=== PATIENT | female | born 1970 | race Caucasian/White ===

== ENCOUNTER → 2022-03-30 16:21 | Outpatient (CLI) | payer OTHER, SELFPAY ==
--- NOTE | ~2022-03-30 | MM_ITS ---
EXAMINATION: MM scrn ryan implant BI w maty HISTORY: Screening mammogram TECHNIQUE: Craniocaudal and mediolateral oblique 3-D tomosynthesis images with implant displacement a nd synthetic 2-D images were generated. Craniocaudal and mediolateral oblique views of the breasts wi thout implant displacement were obtained using full field digital mammography. CAD analysis was submi tted and interpreted. COMPARISON: 11/27/2006 BREAST PARENCHYMAL COMPOSITION: The breasts are extremely dense, which lowers the sensitivity of mamm ography. 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 There has been interval augmentati on mammoplasty. There is no evidence of suspicious mass, calcification, or architectural distortion t o suggest malignancy in either breast. There has been no suspicious interval change. IMPRESSION: 1. No mammographic evidence of malignancy. 2. Recommend routine screening mammography in one year. BI-RADS Category 2: Benign finding(s). Reviewed, dictated and finalized at location A.
== END ==
PROVIDERS: PCP Nurse Practitioner; Visit Provider Nurse Practitioner
DX: Z12.31 Encounter for screening mammogram for malignant neoplasm of breast (principal)
CPT/HCPCS: 77063; 77067

== ENCOUNTER 2023-01-20 11:09 | Observation (INO) | payer OTHER, SELFPAY ==
[2023-01-20] VITALS (21 sets, daily range): BP systolic 94–120; BP diastolic 46–83; PULSE 65–137; RESP 16–28; TEMP 36.7–36.9; O2SAT 98–100; BMI 16.5
--- NOTE | ~2023-01-20 | XR_ITS ---
EXAMINATION: XR chest 2V DATE: 01/20/2023 11:59 INDICATION: Central chest pain radiating to the left arm. TECHNIQUE: Frontal and lateral views of the chest were obtained on 2 radius. COMPARISON: Chest 2 views 02/01/2014 FINDINGS: There is chronic scarring in peripheral left upper lobe. No pleural effusion or pneumothora x. The heart size is normal. Median sternotomy wires are noted. There is dextroscoliosis of thoracic spine with posterior fixation of thoracolumbar spine. IMPRESSION: 1. Stable scarring in peripheral left upper lobe. Reviewed, dictated and finalized at location A.
--- NOTE | ~2023-01-20 | CT_ITS ---
EXAMINATION: CTA chest PE protocol DATE: 01/20/2023 15:06 INDICATION: chest pain and dyspnea TECHNIQUE: Computed tomography angiography (CTA) of the chest was performed Q scan intravenous contra st timed to evaluate the pulmonary arteries. Coronal maximum intensity projection 3D-reconstructions were created by the technologist. The dose-length product (DLP) was 164.26 mGy-cm. Automated exposure control and iterative reconstruction technique were employed. COMPARISON: None. FINDINGS: Lung parenchyma and airways: Subsegmental and centrilobular opacities in the left upper lobe, with as sociated bronchiectasis and pleural scarring. Septal thickening in the left lower lobe. Pleura: Unremarkable. Thoracic inlet, axillae and chest wall: Bilateral breast augmentation. Old sternotomy wires, reported ly secondary to VSD repair. Thoracic aorta: Right-sided aortic arch. No significant dilation or calcification. Mediastinum: Enlarged left hilar nodes versus left hilar mass. Heart and pericardium: Normal. Coronary artery calcifications: Absent. Upper abdomen: No significant finding. Prominent upper abdominal arteries, may represent systemic art erial supply to the left lung. Bones: No acute osseous finding. Uncomplicated appearing thoracolumbar fusion hardware. Pulmonary arteries: Study quality: Adequate. No pulmonary emboli detected. Absent left main pulmonary artery, a known diagnosis according to the patient. IMPRESSION: No CT evidence of acute pulmonary embolus. Parenchymal opacities with fibrosis and bronchiectasis in the left upper lobe may represent atypical infectious or chronic inflammatory change. Left lower lobe septal thickening, may represent asymmetric edema, pneumonitis, or infectious airways disease. Left hilar lymphadenopathy, neoplasia not excluded. Reviewed, dictated and finalized at location K. IMPRESSION: No CT evidence of acute pulmonary embolus. Parenchymal opacities with fibrosis and bronchiectasis in the left upper lobe may represent atypical infectious or chronic inflammatory change. Left lower lobe septal thickening, may represent a symmetric edema, pneumonitis, or infectious airways disease. Left hilar lymphad enopathy, neoplasia not excluded.
--- NOTE | 2023-01-20 11:10 | ECG_ITS ---
Measurements Intervals [place] Rate: 138 P: VT: 0 QRS: 108 QRSD: 129 T: 55 QT: 337 QTc: 512 Interpretive Statements SVT VERSUS ATRIAL FLUTTER WITH RVR WITH ABERRANT CONDUCTION OR VENTRICULAR PREMATURE COMPLEXES RIGHT BUNDLE BRANCH BLOCK T-WAVE ABNORMALITY, CONSIDER ISCHEMIA Electronically Signed On 01-20-2023 15:48:33 CDT by Colten Campbell M.D.
[2023-01-20 11:35] LABS: Basophils Absolute Auto 0.1 K/mm3 (0.0-0.1); Basophils Percent Auto 0.9 % (0.2-1.2); Eosinophils Absolute Auto 0.2 K/mm3 (0-0.3); Hematocrit 39.3 % (37.0-47.0); Hemoglobin 12.6 g/dL (12.0-15.0); Immature Granulocyte Absolute 0.02 K/mm3 (0.00-0.031); Immature Granulocyte Percent A 0.3 % (0-0.5); Lymphocytes Absolute Auto 1.39 K/mm3 (0.9-3.2); Lymphocytes Percent Auto 18.3 % (18.3-44.2); Mean Corpuscular HGB Conc 32.1 g/dl (32-36); Mean Corpuscular Hemoglobin 28.4 pg (26-34); Mean Corpuscular Volume 88.5 fl (80-100); Mean Platelet Volume 10.1 fl (7.4-10.4); Monocytes Absolute Auto 0.7 K/mm3 (0.1-0.6); Monocytes Percent Auto 9.5 % (2.6-8.5); Neutrophils Absolute Auto 5.3 K/mm3 (1.3-6.7); Platelet Count Result 251 k/mm3 (150-375); Red Blood Count 4.44 M/mm3 (4.2-5.4); Red Cell Distribution Width 13.3 % (11.5-14.5); White Blood Count 7.6 K/mm3 (4.5-10.0)
[2023-01-20 11:45] LABS: INR 1.1; Prothrombin Time 13.8 Seconds (11.1-14.7)
[2023-01-20 11:46] LABS: Partial Thromboplastin Time 32.4 SECONDS (22.3-36.8)
[2023-01-20] MEDS: SODIUM CHLORIDE 0.9% IV 1,000 ML 999 ML IV CONT (11:49)
[2023-01-20 11:53] LABS: Alanine Aminotransferase 23 U/L (6-35); Albumin Level 4.4 g/dL (3.5-5.1); Alkaline Phosphatase 83 U/L (38-126); Anion Gap 7 mmol/L (8-16); Aspartate Amino Transferase 31 U/L (14-36); Bilirubin,Total 0.8 mg/dL (0.2-1.3); Blood Urea Nitrogen 16 mg/dL (7-17); Calcium 8.5 mg/dL (8.4-10.2); Carbon Dioxide 30 mmol/L (22-30); Chloride 102 mmol/L (98-107); Estimated CRCL calculation 54 ml/min; Estimated Glomerular Filt Rate > 60; Glucose 110 mg/dL (65-110); Lipase 93 U/L (23-300); Potassium 3.3 mmol/L (3.4-5.0); Sodium 139 mmol/L (137-145)
[2023-01-20 12:02] LABS: Troponin I < 0.012 ng/mL (0.000-0.034)
--- NOTE | 2023-01-20 12:05 | ECG_ITS ---
Measurements Intervals [place] Rate: 114 P: [place]: 0 QRS: 115 QRSD: 123 T: 49 QT: 344 QTc: 474 Interpretive Statements ATRIAL FLUTTER/TACHYCARDIA WITH RAPID VENTRICULAR RESPONSE RIGHT BUNDLE BRANCH BLOCK LEFT POSTERIOR FASCICULAR BLOCK Electronically Signed On 01-20-2023 15:51:02 CDT by Colten Campbell M.D.
[2023-01-20 12:28] LABS: Influenza A QL RT-PCR Negative (Negative); Influenza B QL RT-PCR Negative (Negative); SARS-CoV-2 RNA PCR Negative
[2023-01-20] MEDS: POTASSIUM CHLORIDE 20 MEQ TABLET PO (12:45)
[2023-01-20] MEDS: dilTIAZem 100 MG/100 ML 100 MG/100 ML BAG IV CONT (12:45)
[2023-01-20 13:05] LABS: Magnesium 2.3 mg/dL (1.6-2.3)
--- NOTE | 2023-01-20 13:14 | ED.CHESTPAIN ---
HPI - Chest Pain General Chief Complaint: Chest Pain <James Servin DO - Last Filed: 01/21/23 07:14> Stated Complaint: chest pain <James Servni DO - Last Filed: 01/21/23 07:14> Time Seen by Provider: 01/20/23 11:33 <James Servin DO - Last Filed: 01/21/23 07:14> Source: RN notes reviewed <James Servin DO - Last Filed: 01/21/23 07:14> History of Present Illness HPI narrative: Patient presents emergency department from home for chest pain and shortness of breath. Patient states that she began to have feelings of chest pressure that across her anterior chest associate with shortness of breath began last night. States that she had not been feeling her heart was racing until this morning and her Apple Watch had told her that she had an elevated heart rate. States that she had no fevers or chills she denies any abdominal pain nausea or vomiting. States she has a history of surgery as a child for patent foraminal Millan. Patient also notes that approximately 2 years ago she did have an episode where she had a rapid heart rate and they had to give her medication she was on briefly but no longer takes and does not see cardiology patient states she did recently go for a college visit with her son to [place] <James Servin DO - Last Filed: 01/21/23 07:14> Related Data Home Medications: Home Medications Medication Instructions Recorded Confirmed [id number]-[id number]-fbjxshi-folic 1 tablet PO DAILY 09/05/22 01/20/23 acid 400 mcg-vit K1 20 mcg tablet (One-A-Day Women's 50 Plus) Lactobacillus 1 cap PO DAILY 01/20/23 01/20/23 acidophilus-Bifidobac.animalis 2.5 billion cell capsule (Daily Probiotic) <James Servin DO - Last Filed: 01/21/23 07:14> Allergies/Adverse Reactions: Allergies Allergy/AdvReac Type Severity Reaction Status Date / Time amoxicillin Allergy Severe Vomiting Verified 01/20/23 11:53 cephalexin Allergy Severe Vomiting Verified 01/20/23 11:53 Cephalosporins Allergy Mild UNSURE ( Verified 01/20/23 11:53 A CHILD) Penicillins Allergy Unknown Vomiting Verified 01/20/23 11:53 Sulfa (Sulfonamide Allergy Unknown RASH Verified 01/20/23 11:53 Antibiotics) <James Servin DO - Last Filed: 01/21/23 07:14> Review of Systems Review of Systems: Gen.: Denies fevers or chills ENT: Denies congestion Respiratory: Reports mild shortness of breath CV: See HPI GI: Denies abdominal pain nausea, emesis or diarrhea Musculoskeletal: Denies back pain or muscle pain Neuro: Denies numbness, tingling, weakness or focal weakness Skin: Denies rash Except as documented, all other systems reviewed and negative <James Servin DO - Last Filed: 01/21/23 07:14> [facility] Past Medical History Medical History: Medical History (Updated 01/20/23 @ 22:48 by Madina Colorado PA-C) Congenital heart defect Records reviewed from [facility] dated October 27, 1975. Patient was diagnosed with a cyanotic congenital heart disease, ventricular septal defect, infundibular pulmonic stenosis, and congenital absence of left pulmonary artery. Scoliosis <James Servin DO - Last Filed: 01/21/23 07:14> Surgical History Surgical History: Surgical History (Updated 01/20/23 @ 16:08 by Madina Colorado PA-C) History of breast augmentation History of spinal fusion for scoliosis History of tonsillectomy History of ventricular septal defect repair (1984) <James Servin DO - Last Filed: 01/21/23 07:14> Family History Family History: Family History Father Family history of coronary artery disease Family history of lung cancer Hypertension Acute myocardial infarction Mother Family history of thyroid disease Hypertension <James Servin DO - Last Filed: 01/21/23 07:14> Social History Social History: Social History (Updated 01/20/23 @ 2
[2023-01-20] MEDS: ENOXAPARIN 60 MG/0.6 ML SYRINGE 47 MG SUB-Q (13:34)
--- NOTE | 2023-01-20 14:26 | ECG_ITS ---
Measurements Intervals [place] Rate: 94 P: [place]: 0 QRS: 116 QRSD: 125 T: 48 QT: 352 QTc: 442 Interpretive Statements ATRIAL FLUTTER/TACHYCARDIA WITH ABERRANT CONDUCTION OR VENTRICULAR PREMATURE COMPLEXES RIGHT BUNDLE BRANCH BLOCK Electronically Signed On 01-20-2023 15:51:15 CDT by Colten Campbell M.D.
[2023-01-20 15:01] LABS: Troponin I < 0.012 ng/mL (0.000-0.034)
--- NOTE | 2023-01-20 15:15 | PM.IMHP ---
H&P: HPI History of Present Illness Date/Time: 01/20/23 15:15 Chief Complaint: Chest pain, fast heart rate. Narrative: This is a pleasant 52-year-old female with history of ventricular septal defect repair at age 5 who presented to the emergency department from home for evaluation of chest pain and rapid heart rate. Patient provides the following history. She was born with a congenital heart defect including a ventricular septal defect which was repaired, left-sided pulmonary agenesis, and right-sided aortic arch. As an adult she followed with Dr. Alfaro and it sounds like she was on a low-dose beta-kobi for period of time for tachycardia. She has not been on any medication for years and has otherwise been doing well. Over the last week or so she has developed mild anterior chest discomfort/heaviness and shortness of breath which she sees to be constant tonight admission. She has had some sensations of racing heart and this this morning her Apple watch has been alerting her to the fact that her heart rate has been much more elevated at rest. Because of this she decided to come in for evaluation. She was in atrial fibrillation with rapid ventricular response on arrival to the ED with a rate of 134. She was started on a Cardizem drip and at the time my evaluation her heart rate is bouncing anywhere from the 90s to low 100s. She has no known history of atrial fibrillation and she has never had similar symptoms in the past. She has traveled recently to [place] [facility] and her D-dimer was a bit elevated she was sent for a CTA of the chest. No evidence of acute pulmonary embolism was noted. There were findings of suspected chronic lung changes in the left lung and left hilar lymphadenopathy. With further questioning the patient reports that her left lung has always been weak due to her congenital heart defect. She has had pulmonary function testing in the past and tells me that ?that lung always fails.? She has not had any cough and she gives no history to suggest active infection. Review of Systems Review of Systems: 12 systems were reviewed. Weight has remained stable. No fever, chills, or sweats. No recent cold or flu symptoms. No syncope or near syncope. No nausea, vomiting, diarrhea, or dysuria. Occasional, mild lower extremity edema but none recently. No history of venous thromboembolism. No history of malignancy. She does drink soda, no significant alcohol use. No concerns for sleep apnea. Except as documented, all other systems were reviewed and are negative. [facility] Past Medical History Medical History (Updated 01/20/23 @ 16:11 by Madina Colorado PA-C) Congenital heart defect VSD, right sided aortic arch, left pulmonary artery and agenesis. Scoliosis Surgical History Surgical History (Updated 01/20/23 @ 16:08 by Madina Colorado PA-C) History of breast augmentation History of spinal fusion for scoliosis History of tonsillectomy History of ventricular septal defect repair (1984) Family History Family History Father Family history of coronary artery disease Family history of lung cancer Hypertension Acute myocardial infarction Mother Family history of thyroid disease Hypertension Social History Social History (Updated 01/20/23 @ 20:59 by Madina Colorado PA-C) Social History: Surrogate medical decision maker: James Ha, parents Code status: Full code. Smoking status: Never smoker Second hand tobacco smoke exposure: No Alcohol intake: never Alcohol use details: Rare alcohol use in moderation, typically wine on special occasions. Substance use: never Substance use type: does not use Lack of Transportation: No Lack of Food: Never True Current Housing: I Have Housing Concerned About Future Housing: No Difficulty Paying Gas/Electric Bills: No Difficulty Paying for Meds: No Currently Unemployed: No Education: Master
[2023-01-20 17:38] LABS: Troponin I < 0.012 ng/mL (0.000-0.034)
--- NOTE | 2023-01-20 18:56 | ADMGEN ---
This patient, Kaylah Stringer, was admitted to [facility] IMU[facility]. Patient/family oriented to hospital policies and general routines including ID bracelet, bed and alarms, visiting hours, pain management, procedures, bathroom and other care routines, personal items, smoking policy, room service/diet, and visiting hours. Information on how to activate the Rapid Response Team has been discussed. Patient/Family are encouraged to report perceived risks to care and to ask questions if they do not understand what they are told or what they should do.
[2023-01-20] MEDS: IBUPROFEN 600 MG TABLET PO (20:39)
[2023-01-21] VITALS (8 sets, daily range): BP systolic 90–98; BP diastolic 50–53; PULSE 65–85; RESP 16–18; TEMP 36.4–36.6; O2SAT 98–100
[2023-01-21 05:15] LABS: Anion Gap 3 mmol/L (8-16); Blood Urea Nitrogen 11 mg/dL (7-17); Calcium 8.1 mg/dL (8.4-10.2); Carbon Dioxide 32 mmol/L (22-30); Chloride 104 mmol/L (98-107); Estimated CRCL calculation 71 ml/min; Estimated Glomerular Filt Rate > 60; Glucose 88 mg/dL (65-110); Magnesium 2.2 mg/dL (1.6-2.3); Potassium 3.7 mmol/L (3.4-5.0); Sodium 139 mmol/L (137-145)
[2023-01-21 06:15] LABS: Thyroid Stimulating Hormone Reflex 0.633 uIU/mL (0.465-4.68)
--- NOTE | 2023-01-21 08:55 | PM.CNCAR ---
Assessment and Plan Assessment and plan (1) Atrial flutter with rapid ventricular response: Code(s): I48.92 - Unspecified atrial flutter Status: Acute Assessment and Plan: 52-year-old female with history of acyanotic congenital heart disease (ventricular septal defect, infundibular pulmonic stenosis and absent left pulmonary (based on the medical records from 11/26/1975), probable PFO versus small ASD status post post surgical repair at age 5 at [facility], scoliosis with history of back surgery. Patient presented to the hospital with palpitations, shortness of breath and mild chest discomfort. She was found to be in atrial flutter with RVR. Her heart rate improved with IV diltiazem with current heart rate in 80s and 90s. Her symptoms have completely resolved. Serial troponins negative. D-dimer was minimally elevated, however CT chest negative for PE. TSH within normal limits. -will bridge IV diltiazem to p.o. diltiazem CD 1 20 mg p.o. daily. -based on current CHADSVASc score, will start aspirin. Need for anticoagulation to be determined after echocardiogram is complete. -echocardiogram with Doppler is recommended. However, patient would like to have echo with Doppler done as an outpatient. I provided information to the patient about our cardiology clinic. -patient will follow up in Cardiology Clinic. Once echocardiogram is complete, will determine need for referral to Adult Congenital Heart Disease Clinic. Will also consider referral to electrophysiology as necessary. She was advised to return to hospital if she has any recurrent sustained palpitations or other major cardiovascular symptoms. Plan discussed with the patient and her family they are in agreement. -I personally reviewed patient's remote medical records including her diagnosis of congenital heart disease. (2) Congenital heart disease: Code(s): Q24.9 - Congenital malformation of heart, unspecified Status: Acute Plan Echocardiogram with Doppler. Other plan discussed above. History of Present Illness History of Present Illness Consult date/time: 01/21/23 08:55 Reason For Visit: A Fib with RVR Narrative: DATE OF CONSULT: 01/21/2023 REASON FOR CONSULT: Atrial fibrillation REQUESTING PHYSICIAN:James Servin DO CHIEF COMPLAINT: Chest pain and shortness of breath HPI: 52-year-old female with history of acyanotic congenital heart disease (ventricular septal defect, infundibular pulmonic stenosis and absent left pulmonary (based on the medical records from 11/26/1975), probable PFO versus small ASD status post post surgical repair at age 5 at [facility], scoliosis with history of back surgery. Patient presented to [facility] Emergency Room on 01/20/2023 with complaints of palpitations and shortness of breath that started couple of days ago. Patient has history of congenital heart disease as described above and is status post surgical repair at age 5. She states that she had palpitations about 10-12 years ago and used to see dimension specification inspector-Dr. Alfaro at a time. She took a medication for palpitations at that she does not recall which helped with the palpitations and subsequently discontinued them. She is physically active and denies any major cardiovascular symptoms except sporadic palpitations, until few days ago when started having sustained palpitations associated with shortness of breath and mild chest discomfort. Patient came to the emergency room and was found to be tachycardic at a heart rate of 134 beats per minute, blood pressure 116/68, respirations 20, afebrile, saturating 100%. Initial EKG on my personal evaluation showed SVT versus atrial flutter with RVR with a heart rate of 138 beats per minute, right bundle-branch block. Subsequent EKG were more consistent with atrial flutter. Patient received IV diltiazem with improvement in her heart rates. Serial troponins negative. TSH within normal limits.
[2023-01-21] MEDS: THERAPEUTIC MULTIVITAMINS/MINERALS TAB (*BKC) 1 TABLET PO (09:01)
[2023-01-21] MEDS: ACIDOPHILUS/BULGARICUS CHEWABLE TABLET 1 TABLET PO (09:01)
[2023-01-21] MEDS: IBUPROFEN 600 MG TABLET PO (10:23)
[2023-01-21] MEDS: ASPIRIN 81 MG ENTERIC TABLET PO (11:40)
--- NOTE | 2023-01-21 12:09 | PM.DS ---
DS: Admitting Diagnosis Discharge Date 01/21/23 Admitting Diagnosis A fib RVR DS: Discharge Diagnosis Discharge Diagnosis (1) Atrial fibrillation with rapid ventricular response: Code(s): I48.91 - Unspecified atrial fibrillation Status: Acute Assessment and Plan: New onset AFib. Precipitating etiology not clear but may be related to congenital heart defect. Had improvement in heart rate with diltiazem drip. She was transitioned to PO cardizem 120 mg daily. Seen in consultation by cardiology. Based on CHADS-Vasc score she was started on aspirin 81 mg daily. Echocardiogram recommended, however patient wished to be discharged and follow up with this as an outpatient. She will then follow-up with cardiology clinic. Based on echocardiogram results, will be considered for referral to congenital heart disease clinic and possibly electrophysiology. (2) Chest pain: Code(s): R07.9 - Chest pain, unspecified Status: Acute Assessment and Plan: Likely related to above. No evidence of PE on chest CTA. No acute ST elevations or depressions noted on EKG. Symptoms resolved (3) Hypokalemia: Code(s): E87.6 - Hypokalemia Status: Acute Assessment and Plan: Potassium was supplemented and normalized DS: Summary Hospital Course Hospital Course: Date of service: 01/20/23 Date of discharge: 01/21/23 Kaylah Stringer is a 52 year old female with a history of congenital heart defect and scoliosis who presented to the emergency department on 01/20/23 with complaints of chest pain, palpitations, and shortness of breath. On presentation to the ED, heart rate was 34, additional vital signs were stable, CBC and BMP unremarkable, troponin negative, D-dimer slightly elevated at 0.7, TSH was low but on repeat UA was within normal limits. She was admitted to the hospitalist service for further evaluation management was seen in consultation by cardiology. Please see plan above for further details. She will follow-up with cardiology as an outpatient. Patient overall had symptomatic improvement and heart rate was controlled. She was determined to no longer require inpatient care and was discharged in hemodynamically stable condition. Discussed with the patient worrisome signs and symptoms for which to return and she was educated on her medications. She will follow-up with PCP and with Cardiology. Time Spent with Patient Time attestation: Total time spent providing and/or coordinating discharge services: 45 minutes Time spent: Greater than 30 minutes Exam Narrative: General: Well-nourished, well-appearing 52-year-old female, sitting up in bed, comfortable, NARD Neuro: awake, alert and oriented x4, speech clear, no focal neuro deficits noted HEENMT: normocephalic, atraumatic, EOMI, sclerae anicteric Respiratory: clear to auscultation bilaterally, nonlabored breathing Cardio: regular rate, regular rhythm Abdomen: nondistended, normoactive bowel sounds, soft, nontender to palpation Extremities: no edema, erythema, or tenderness to palpation Skin: no rashes or lesions, warm and dry Psych: appropriate mood and affect, judgment and insight intact DS: Data Data Completed and Pending Labs on day of discharge: Labs from last 24 hours 01/21/23 01/21/23 01/20/23 04:35 04:35 17:12 D-Dimer Sodium 139 Potassium 3.7 Chloride 104 Carbon Dioxide 32 H Anion Gap 3 L BUN 11 D Creatinine 0.60 L Estim Creat Clear Calc 71 Estimated GFR > 60 Glucose 88 Calcium 8.1 L Magnesium 2.2 Troponin I < 0.012 TSH TSH (Reflex) 0.633 Influenza A (RT-PCR) Influenza B (RT-PCR) SARS-CoV-2 RNA (RT-PCR) 01/20/23 01/20/23 01/20/23 14:21 11:48 11:21 D-Dimer 0.70 H Sodium Potassium Chloride Carbon Dioxide Anion Gap BUN Creatinine Estim Creat Clear Calc Estimated GFR Glucose Calcium Magnesium Troponin I < 0.012
== END 2023-01-21 13:55 | disposition home or self-care (01) ==
LOC: ANHED 13:26 → ANHIMU 17:33
PROVIDERS: Physician Assistant; Admitting Provider Family Medicine; Emergency Provider Emergency Medicine; PCP Family Medicine; Visit Provider Physician Assistant
DX: I48.92 Unspecified atrial flutter (principal); Q24.9 Congenital malformation of heart, unspecified; E87.6 Hypokalemia; R00.0 Tachycardia, unspecified; Z20.822 Contact with and (suspected) exposure to COVID-19; R94.31 Abnormal electrocardiogram [ECG] [EKG]; J98.4 Other disorders of lung; F10.90 Alcohol use, unspecified, uncomplicated; Z82.49 Family history of ischemic heart disease and other diseases of the circulatory system; Z79.899 Other long term (current) drug therapy
CPT/HCPCS: 36415; 71046; 71275; 80048; 80053; 83690; 83735; 84443; 84484; 85025; 85380; 85610; 85730; 87636; 93005; 96361; 96374; 99285; A9270; G0378; J1650; J7030; Q9967

== ENCOUNTER 2024-08-20 13:43 | Outpatient (CLI) | payer OTHER, SELFPAY ==
--- NOTE | ~2024-08-20 | MM_ITS ---
EXAMINATION: MM scrn ryan implant BI w maty HISTORY: Screening mammogram TECHNIQUE: Craniocaudal and mediolateral oblique 3-D tomosynthesis images with implant displacement a nd synthetic 2-D images were generated. Craniocaudal and mediolateral oblique views of the breasts wi thout implant displacement were obtained using full field digital mammography. CAD analysis was submi tted and interpreted. COMPARISON: 03/30/2022 BREAST PARENCHYMAL COMPOSITION: The breasts are extremely dense, which lowers the sensitivity of mamm ography. FINDINGS: Stable large probable lipoma versus hamartoma in the left breast. There is no evidence of s uspicious mass, calcification, or architectural distortion to suggest malignancy in either breast. Th ere has been no suspicious interval change. IMPRESSION: No mammographic evidence of malignancy. Recommend routine screening mammography in one year. BI-RADS Category 2: Benign finding(s). Reviewed, dictated and finalized at location .
== END 2024-08-20 13:44 | disposition home or self-care (01) ==
LOC: MICIMG 13:43
PROVIDERS: PCP Obstetrics & Gynecology Gynecology; Visit Provider Nurse Practitioner Women's Health
DX: Z12.31 Encounter for screening mammogram for malignant neoplasm of breast (principal)
CPT/HCPCS: 77063; 77067